=== PATIENT | female | born 1940 | race Caucasian/White ===

== ENCOUNTER 2019-10-31 08:01 | Day surgery (SDC) | payer MEDICARE, BC ==
[~2019-10-31 08:01] MED LIST: Cefuroxime 10 MG/ML SYRINGE EYERT SCH; Lidocaine 1% PF 2 ML SDV INJECT SCH; Pilocarpine 4% Ophth Soln 15 ML Bot EYERT SCH; Polymyxin B/Trimethoprim 10 ML Bottle EYERT SCH
--- NOTE | 2019-10-31 08:40 | PCM.PREANE ---
Preanesthetic Assessment - Procedure Proposed Procedure: Right eye cataract extraction with IOL - Anesthesia/Transfusion/Family Hx Anesthesia History: Prior Anesthesia Without Reaction Family History of Anesthesia Reaction: No - Review of Systems General: No Symptoms Pulmonary: No Symptoms Cardiovascular: Other (Hypertension) Gastrointestinal: No Symptoms Neurological: Other (Chronic Back Pain, career development specialist. ) Other: Reports: Thyroid Problems (Hypothyroidism), Depression, Anxiety - Physical Assessment NPO Status Date: 10/30/19 NPO Status Time: 23:59 ASA Class: 2 Mental Status: Alert & Oriented x3 Airway Class: Mallampati = 2 Dentition: Reports: Normal Dentition Thyro-Mental Finger Breadths: 3 Mouth Opening Finger Breadths: 3 ROM/Head Extension: Full Lungs: Clear to Auscultation, Normal Respiratory Effort Cardiovascular: Regular Rate, Regular Rhythm - Allergies Allergies/Adverse Reactions: Allergies Allergy/AdvReac Type Severity Reaction Status Date / Time sulfamethizole Allergy Burning Verified 10/30/19 15:02 - Acknowledgements Anesthesia Type Planned: MAC Pt an Appropriate Candidate for the Planned Anesthesia: Yes Alternatives and Risks of Anesthesia Discussed w Pt/Guardian: Yes Pt/Guardian Understands and Agrees with Anesthesia Plan: Yes PreAnesthesia Questionnaire - HOME MEDS Home Medications: Home Meds ALPRAZolam [Alprazolam Xr] 0.5 mg PO BID PRN 10/30/19 [History] Acetaminophen [Tylenol] 650 mg PO Q4H PRN 10/30/19 [History] Calcium Carb/Vitamin D3/Vit K1 [Viactiv 650 mg-12.5 Mcg Chew] 1 tab PO DAILY [History] Denosumab [Prolia] 60 mg SQ ASDIRECTED 10/30/19 [History] Docusate Sodium [Colace] 100 mg PO DAILY 10/30/19 [History] Levothyroxine 75 mcg PO DAILY 10/30/19 [History] Levothyroxine 175 mcg PO DAILY 10/30/19 [History] Losartan [Cozaar] 100 mg PO DAILY 10/30/19 [History] Phenazopyridine HCl [Azo Urinary Pain Relief] 95 mg PO DAILY 10/30/19 [History] Potassium Chloride 20 meq PO TID 10/30/19 [History] Rosuvastatin [Crestor] 5 mg PO DAILY 10/30/19 [History] Sertraline HCl [Zoloft] 100 mg PO BID 10/30/19 [History] Verapamil [Covera-HS] 240 mg PO BID 10/30/19 [History] Vit A/Vit C/Vit E/Zinc/Copper [Preservision] 1 tab PO DAILY 10/30/19 [History] busPIRone [Buspar] 15 mg PO TID 10/30/19 [History] - CURRENT (IN HOUSE) MEDS Current Meds: Current Medications Brimonidine Tartrate (Alphagan 0.2% Ophth Soln) 0 ml EYERT ASDIRECTED ABHAY Stop: 10/31/19 18:00 Cefuroxime Sodium (Zinacef) 0 mg EYERT ASDIRECTED ABHAY Stop: 10/31/19 18:00 Lidocaine HCl (Xylocaine-Mpf 1%) 2 ml INJECT ONETIME ABHAY Stop: 10/31/19 18:00 Ofloxacin (Ocuflox 0.3% Ophth Soln) 0 ml EYERT ASDIRECTED ABHAY Stop: 10/31/19 18:00 Phenylephrine HCl (Dave-Synephrine 2.5% Ophth Soln) 0 ml EYERT ASDIRECTED ABHAY Stop: 10/31/19 18:00 Pilocarpine HCl (Pilocar 4% Ophth Soln) 0 ml EYERT ASDIRECTED ABHAY Stop: 10/31/19 18:00 Tetracaine HCl (Tetracaine 0.5% Steri-Unit Belia) 0 ml EYEBOTH ASDIRECTED ABHAY Stop: 10/31/19 18:00 Tropicamide (Mydriacyl 1% Ophth Soln) 0 ml EYERT ASDIRECTED ABHAY Stop: 10/31/19 18:00
[2019-10-31] MEDS: Ofloxacin 0.3% Ophth Soln 5 ML Bottle EYERT SCH ×3 (09:16→11:24)
[2019-10-31] MEDS: Brimonidine 0.2% Ophth Soln 5 ML Bottle EYERT SCH ×3 (09:20→11:24)
[2019-10-31] MEDS: Phenylephrine 2.5% Ophth Soln 2 ML Bot EYERT SCH ×5 (09:24→10:52)
[2019-10-31] MEDS: Tropicamide 1% Ophth Soln 15 ML Bottle EYERT SCH ×4 (09:29→10:03)
[2019-10-31] MEDS: Tetracaine HCl/PF 0.5% 4 ML Bottle EYEBOTH SCH ×4 (10:10→11:11)
--- NOTE | 2019-10-31 12:15 | PCM48HPAN ---
Post Anesthesia Note - EVALUATION WITHIN 48HRS OF ANESTHETIC Vital Signs in Normal Range: Yes Patient Participated in Evaluation: Yes Respiratory Function Stable: Yes Airway Patent: Yes Cardiovascular Function Stable: Yes Hydration Status Stable: Yes Pain Control Satisfactory: Yes Nausea and Vomiting Control Satisfactory: Yes Mental Status Recovered: Yes Vital Signs: Last Vital Signs Temp 36.7 C 10/31/19 11:27 Pulse 76 10/31/19 11:27 Resp 20 10/31/19 11:27 BP 132/72 10/31/19 11:27 Pulse Ox 95 10/31/19 11:27
== END 2019-10-31 11:35 | disposition home or self-care (01) ==
LOC: JD.SDS 08:01
PROVIDERS: ATTEND Ophthalmology
DX: H25.813 Combined forms of age-related cataract, bilateral (principal); H35.3132 Nonexudative age-related macular degeneration, bilateral, intermediate dry stage; H35.363 Drusen (degenerative) of macula, bilateral; H16.223 Keratoconjunctivitis sicca, not specified as Sjogren's, bilateral; H16.103 Unspecified superficial keratitis, bilateral; H02.831 Dermatochalasis of right upper eyelid; H02.834 Dermatochalasis of left upper eyelid; H53.032 Strabismic amblyopia, left eye; F41.9 Anxiety disorder, unspecified; F32.9 Major depressive disorder, single episode, unspecified; E78.00 Pure hypercholesterolemia, unspecified; E03.9 Hypothyroidism, unspecified; I10 Essential (primary) hypertension; Z87.891 Personal history of nicotine dependence; Z79.890 Hormone replacement therapy; Z88.2 Allergy status to sulfonamides; Z79.899 Other long term (current) drug therapy
CPT/HCPCS: 66984; J0697; J2001; A9270-GY; V2632

== ENCOUNTER 2019-11-28 07:10 | Day surgery (SDC) | payer MEDICARE, BC ==
[~2019-11-28 07:10] MED LIST changes: +Cefuroxime 10 MG/ML SYRINGE EYELF SCH; -Cefuroxime 10 MG/ML SYRINGE EYERT SCH; +Pilocarpine 4% Ophth Soln 15 ML Bot EYELF SCH; -Pilocarpine 4% Ophth Soln 15 ML Bot EYERT SCH; +Polymyxin B/Trimethoprim 10 ML Bottle EYELF SCH; -Polymyxin B/Trimethoprim 10 ML Bottle EYERT SCH
[2019-11-28] MEDS: Ofloxacin 0.3% Ophth Soln 5 ML Bottle EARLF SCH ×2 (07:40→08:13)
--- NOTE | 2019-11-28 07:43 | PCM.PREANE ---
Preanesthetic Assessment - Anesthesia/Transfusion/Family Hx Anesthesia History: Prior Anesthesia Without Reaction Family History of Anesthesia Reaction: No Transfusion History: No Prior Transfusion(s) - Review of Systems General: No Symptoms Pulmonary: No Symptoms Cardiovascular: Other (HTN, high cholesterol) Gastrointestinal: No Symptoms Other: Reports: Thyroid Problems, Depression, Anxiety - Physical Assessment NPO Status Date: 11/27/19 NPO Status Time: 20:00 Height: 1.6 m Weight: 68.039 kg ASA Class: 2 Mental Status: Alert & Oriented x3 Airway Class: Mallampati = 2 Dentition: Reports: Normal Dentition Thyro-Mental Finger Breadths: 3 Mouth Opening Finger Breadths: 3 ROM/Head Extension: Full Lungs: Clear to Auscultation, Normal Respiratory Effort Cardiovascular: Regular Rate, Regular Rhythm - Allergies Allergies/Adverse Reactions: Allergies Allergy/AdvReac Type Severity Reaction Status Date / Time sulfamethizole Allergy Burning Verified 11/27/19 15:30 - Blood Blood Available: No Product(s) Available: None - Anesthesia Plan Pre-Op Medication Ordered: None - Acknowledgements Anesthesia Type Planned: MAC Pt an Appropriate Candidate for the Planned Anesthesia: Yes Alternatives and Risks of Anesthesia Discussed w Pt/Guardian: Yes Pt/Guardian Understands and Agrees with Anesthesia Plan: Yes PreAnesthesia Questionnaire - HOME MEDS Home Medications: Home Meds ALPRAZolam [Alprazolam Xr] 0.5 mg PO BID PRN 10/30/19 [History] Acetaminophen [Tylenol] 650 mg PO Q4H PRN 10/30/19 [History] Calcium Carb/Vitamin D3/Vit K1 [Viactiv 650 mg-12.5 Mcg Chew] 1 tab PO DAILY [History] Denosumab [Prolia] 60 mg SQ ASDIRECTED 10/30/19 [History] Docusate Sodium [Colace] 100 mg PO DAILY 10/30/19 [History] Levothyroxine 75 mcg PO DAILY 10/30/19 [History] Levothyroxine 175 mcg PO DAILY 10/30/19 [History] Losartan [Cozaar] 100 mg PO DAILY 10/30/19 [History] Phenazopyridine HCl [Azo Urinary Pain Relief] 95 mg PO DAILY 10/30/19 [History] Potassium Chloride 20 meq PO TID 10/30/19 [History] Rosuvastatin [Crestor] 5 mg PO DAILY 10/30/19 [History] Sertraline HCl [Zoloft] 100 mg PO BID 10/30/19 [History] Verapamil [Covera-HS] 240 mg PO BID 10/30/19 [History] Vit A/Vit C/Vit E/Zinc/Copper [Preservision] 1 tab PO DAILY 10/30/19 [History] busPIRone [Buspar] 15 mg PO TID 10/30/19 [History] - CURRENT (IN HOUSE) MEDS Current Meds: Current Medications Brimonidine Tartrate (Alphagan 0.2% Ophth Soln) 0 ml EYELF ASDIRECTED ABHAY Stop: 11/28/19 18:00 Cefuroxime Sodium (Zinacef) 0 mg EYELF ASDIRECTED ABHAY Stop: 11/28/19 18:00 Lidocaine HCl (Xylocaine-Mpf 1%) 0 ml INJECT ASDIRECTED ABHAY Stop: 11/28/19 18:00 Ofloxacin (Ocuflox 0.3% Ophth Soln) 1 ml EARLF DAILY ABHAY Stop: 11/29/19 18:00 Phenylephrine HCl (Dave-Synephrine 2.5% Ophth Soln) 0 ml EYELF ASDIRECTED ABHAY Stop: 11/28/19 18:00 Pilocarpine HCl (Pilocar 4% Ophth Soln) 0 ml EYELF ASDIRECTED ABHAY Stop: 11/28/19 18:00 Tetracaine HCl (Tetracaine 0.5% Steri-Unit Belia) 0 ml EYEBOTH ASDIRECTED ABHAY Stop: 11/28/19 18:00 Tropicamide (Mydriacyl 1% Ophth Soln) 0 ml EYELF ASDIRECTED ABHAY Stop: 11/28/19 18:00 Discontinued Medications Polymyxin/Trimethoprim Sulfate (Polytrim Ophth Soln) 0 ml EYELF ASDIRECTED ABHAY Stop: 11/28/19 18:00
[2019-11-28] MEDS: Brimonidine 0.2% Ophth Soln 5 ML Bottle EYELF SCH ×3 (07:44→09:06)
[2019-11-28] MEDS: Phenylephrine 2.5% Ophth Soln 2 ML Bot EYELF SCH ×5 (07:48→08:43)
[2019-11-28] MEDS: Tropicamide 1% Ophth Soln 15 ML Bottle EYELF SCH ×4 (07:52→08:24)
[2019-11-28] MEDS: Tetracaine HCl/PF 0.5% 4 ML Bottle EYEBOTH SCH ×2 (08:28→08:50)
--- NOTE | 2019-11-28 09:08 | PCM48HPAN ---
Post Anesthesia Note - EVALUATION WITHIN 48HRS OF ANESTHETIC Vital Signs in Normal Range: Yes Patient Participated in Evaluation: Yes Respiratory Function Stable: Yes Airway Patent: Yes Cardiovascular Function Stable: Yes Hydration Status Stable: Yes Pain Control Satisfactory: Yes Nausea and Vomiting Control Satisfactory: Yes Mental Status Recovered: Yes Vital Signs: Last Vital Signs Temp 36.4 C 11/28/19 07:20 Pulse 66 11/28/19 07:20 Resp 16 11/28/19 07:20 BP 134/95 H 11/28/19 07:20 Pulse Ox 97 11/28/19 07:20
== END 2019-11-28 09:17 | disposition home or self-care (01) ==
LOC: JD.SDS 07:10
PROVIDERS: ATTEND Ophthalmology
DX: H25.812 Combined forms of age-related cataract, left eye (principal); I10 Essential (primary) hypertension; E78.00 Pure hypercholesterolemia, unspecified; H40.003 Preglaucoma, unspecified, bilateral; H52.31 Anisometropia; H21.81 Floppy iris syndrome; H21.42 Pupillary membranes, left eye; H50.012 Monocular esotropia, left eye; Z98.41 Cataract extraction status, right eye; Z87.891 Personal history of nicotine dependence; Z96.1 Presence of intraocular lens
CPT/HCPCS: 66982; C1780; J0697; J2001; A9270-GY